=== PATIENT | male | born 1995 | race Hispanic/Latino ===

== ENCOUNTER 2018-07-01 08:59 | Emergency (ER) | payer SELFPAY ==
[2018-07-01] MEDS ORDERED: TETANUS & DIPHTHERIA TOX,ADULT 0.5 ML VIAL ONE (09:26)
[2018-07-01] MEDS ORDERED: BUPIVACAINE 0.5% PF 10 ML VIAL ONE (09:49)
[2018-07-01] MEDS ORDERED: LIDOCAINE 1% MPF 5 ML VIAL ONE (09:49)
--- NOTE | 2018-07-01 10:00 | RAD REPORT ---
EXAM DESCRIPTION: RAD - Hand Right 3 View - 07/01/2018 9:36 am CLINICAL HISTORY: Hand pain, laceration, location not specified COMPARISON: None. FINDINGS: No fracture is identified. There is no dislocation or periosteal reaction noted. No forei gn body or other soft tissue abnormality. IMPRESSION: Negative right hand examination.
--- NOTE | 2018-07-01 10:50 | ER ---
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 Transition of care: patient was not received from another setting of care. Onset of symptoms was July 01, 2018. Risk Assessment: Do you want to hurt yourself or someone else? Patient reports no desire to harm self or others. Initial Sepsis Screen: Does the patient meet any 2 criteria? No. Patient's initial sepsis screen is negative. Does the patient have a suspected source of infection? No. Patient's initial sepsis screen is negative. Care prior to arrival: Bleeding of injury controlled. Injury dressed. 09:11 Method Of Arrival: Ambulatory iw 09:11 Acuity: PAMELA 4 iw Triage Assessment: 09:25 General: Appears in no apparent distress. uncomfortable, Behavior is calm, cooperative, hj appropriate for age. Pain: Complains of pain in left hand. Historical: - Allergies: 09:12 No Known Allergies; iw - Home Meds: 09:12 None [Active]; iw - PMHx: 09:12 None; iw - PSHx: 09:12 None; iw - Immunization history:: Adult Immunizations not up to date. - Social history:: Smoking status: Patient/guardian denies using tobacco. - Ebola Screening: : Patient negative for fever greater than or equal to 101.5 degrees Fahrenheit, and additional compatible Ebola Virus Disease symptoms Patient denies exposure to infectious person Patient denies travel to an Ebola-affected area in the 21 days before illness onset No symptoms or risks identified at this time. Screenin:24 Abuse screen: Denies threats or abuse. Denies injuries from another. Nutritional hj screening: No deficits noted. Tuberculosis screening: No symptoms or risk factors identified. Fall Risk None identified. Assessment: 09:26 General: Appears in no apparent distress. uncomfortable, Behavior is calm, cooperative, hj appropriate for age. Pain: Complains of pain in left hand. Neuro: Level of Consciousness is awake, alert, obeys commands, Oriented to person, place, time, situation, Appropriate for age. Cardiovascular: Capillary refill < 3 seconds Patient's skin is warm and dry. Respiratory: Airway is patent Respiratory effort is even, unlabored, Respiratory pattern is regular, symmetrical. GI: No signs and/or symptoms were reported involving the gastrointestinal system. : No signs and/or symptoms were reported regarding the genitourinary system. EENT: No signs and/or symptoms were reported regarding the EENT system. Derm: Wound noted left hand. Musculoskeletal: No signs and/or symptoms reported regarding the musculoskeletal system. 10:30 Reassessment: Patient appears in no apparent distress at this time. No changes from aj1 previously documented assessment. Patient and/or family updated on plan of care and expected duration. Pain level reassessed. Patient is alert, oriented x 3, equal unlabored respirations, skin warm/dry/pink. 11:39 Reassessment: Patient appears in no apparent distress at this time. No changes from aj1 previously documented assessment. Patient and/or family updated on plan of care and expected duration. Pain level reassessed. Patient is alert, oriented x 3, equal unlabored respirations, skin warm/dry/pink. Vital Signs: 09:12 BP 139 / 80; Pulse 85; Resp 16 S; Temp 98.3; Pulse Ox 98% on R/A; Weight 108.86 kg; iw Height 5 ft. 7 in. (170.18 cm); Pain 0/10; 09:12 Body Mass Index 37.59 (108.86 kg, 170.18 cm) iw ED Course: 09:02 Patient arrived in ED. mr 09:03 None, None is Private Physician. mr 09:07 Sivakumar Lincoln PA is PHCP. cp 09:07 Ryan Le MD is Attending Physician. cp 09:09 Tariq Mijares, HIRAM is Primary Nurse. hj 09:12 Triage completed. iw 09:12 Arm band placed on. iw 09:26 Patient has correct armband on for positive identification. Bed in low position. Call hj light in reach. Side rails up X 1. 09:33 X-ray completed. Portable x-ray completed in exam room. Patient tolerated procedure sw well. 09:36 XRAY Hand RIGHT 3 View In Process Unspecified. EDMS 10:03 Report given to HIRAM Sandoval. 10:30 Assist provider with laceration repair on left hand using sutures. Set up tray. aj1 Performed by Sivakumar WAGGONER Patient tolerated well. 11:43 Patient did not have IV access during this emergency room visit. aj1 Administered Medications: 09:19 Drug: Tetanus-Diphtheria Toxoid Adult 0.5 ml {Activities Director Scouting: [employer]. Exp: 06/12/2020. Lot #: [id number]. } Route: IM; Site: left deltoid; 09:36 Follow up: Response: No adverse reaction 11:42 Follow up: Response: No adverse reaction aj 10:30 Drug: Lidocaine (1 %) 5 ml {Note: by PA. Ignacio} Volume: 5 ml; Route: Infiltration; aj1 11:42 Follow up: Response: No adverse reaction aj1 10:30 Drug: Bupivacaine (0.5 %) 5 ml {Note: given by PA. Ignacio} Volume: 10 ml; Route: aj1 Infiltration; 11:42 Follow up: Response: No adverse reaction aj1 Outcome: 10:50 Discharge ordered by . eliu 11:43 Discharged to home ambulatory. aj1 11:43 Condition: good 11:43 Discharge instructions given to patient, Instructed on discharge instructions, follow up and referral plans. Demonstrated understanding of instructions, follow-up care. 11:43 Patient left the ED. aj1 Signatures: Dispatcher [employer] EDMS Nhi Pablo RN RN aj1 Rivera, Mary mr Williams, Irene, RN RN iw Warren, Shannon sw Joaquin, Henry, RN RN hj Page, Corey, PA PA cp
--- NOTE | 2018-07-01 10:51 | EDPHYS ---
Physician Documentation [facility] Name: Malachi Carrillo Age: 22 yrs Sex: Male : 1995 Arrival Date: 07/01/2018 Time: 09:02 Bed 4 Private MD: None, None ED Physician Ryan Le HPI: 07/01 09:15 This 22 yrs old Male presents to ER via Ambulatory with complaints of Finger cp lacerations. Historical: - Allergies: 09:12 No Known Allergies; iw - Home Meds: 09:12 None [Active]; iw - PMHx: 09:12 None; iw - PSHx: 09:12 None; iw - Immunization history:: Adult Immunizations not up to date. - Social history:: Smoking status: Patient/guardian denies using tobacco. - Ebola Screening: : Patient negative for fever greater than or equal to 101.5 degrees Fahrenheit, and additional compatible Ebola Virus Disease symptoms Patient denies exposure to infectious person Patient denies travel to an Ebola-affected area in the 21 days before illness onset No symptoms or risks identified at this time. ROS: 09:20 Constitutional: Negative for fever. cp 09:20 Eyes: Negative for injury, pain, redness, and discharge. cp 09:20 ENT: Negative for ear pain, sore throat. 09:20 Cardiovascular: Negative for chest pain, palpitations. 09:20 Respiratory: Negative for cough, wheezing. 09:20 Skin: Positive for laceration(s), of the right hand. 09:20 All other systems are negative. Exam: 09:25 Constitutional: The patient appears in no acute distress, alert, awake, well developed, cp well nourished. 09:25 Head/Face: Normocephalic, atraumatic. cp 09:25 Eyes: Periorbital structures: appear normal, Conjunctiva: normal, no exudate, no injection, Lids and lashes: appear normal, bilaterally. 09:25 ENT: External ear(s): are unremarkable, Nose: is normal, Mouth: is normal. 09:25 Chest/axilla: Inspection: normal. 09:25 Cardiovascular: Rate: normal. 09:25 Respiratory: the patient does not display signs of respiratory distress, Respirations: normal, no use of accessory muscles, no retractions, no splinting, no tachypnea. 09:25 Abdomen/GI: Exam negative for discomfort, distension, guarding, Inspection: abdomen appears normal. 09:25 Skin: injury, laceration(s), the wound is approximately 3 cm(s), of the distal phalanx [place] side, the second wound is approximately 2.5 cm(s), of the radial side middle phalanx right middle finger, that can be described as clean, no foreign body, linear, without bleeding. 09:25 Neuro: Motor: is normal, Sensation: 2 point discrimination is normal. Vital Signs: 09:12 BP 139 / 80; Pulse 85; Resp 16 S; Temp 98.3; Pulse Ox 98% on R/A; Weight 108.86 kg; iw Height 5 ft. 7 in. (170.18 cm); Pain 0/10; 09:12 Body Mass Index 37.59 (108.86 kg, 170.18 cm) iw Laceration: 10:43 Wound Repair of 3cm ( 1.2in ) subcutaneous laceration to right index finger. Linear cp shaped.. Distal neuro/vascular/tendon intact. Anesthesia: Digital block administered with 4 mls of Lido/Marcaine. Wound prep: Moderate cleansing by operating room surgical technician. Skin closed with 4 5-0 Prolene using interrupted sutures and sterile technique. Dressed with Bacitracin, Kerlix. Patient tolerated well. 10:43 Wound Repair of 2.5cm ( 1.0in ) subcutaneous laceration to right middle finger. Linear cp shaped.. Distal neuro/vascular/tendon intact. Anesthesia: Wound infiltrated with 4 mls of Lido/Marcaine. Wound prep: Moderate cleansing by nurse. Skin closed with 4 5-0 Prolene using interrupted sutures and sterile technique. Dressed with Bacitracin, Kerlix. Patient tolerated well. MDM: 09:07 Patient medically screened. cp 10:00 Differential diagnosis: tendon injury, simple laceration, open fracture. cp 10:50 Data reviewed: vital signs, nurses notes, radiologic studies, plain films, and as a cp result, I will discharge patient. 10:50 Test interpretation: by ED physician or midlevel provider: plain radiologic studies. cp 10:50 Counseling: I had a detailed discussion with the patient and/or guardian regarding: the cp historical points, exam findings, and any diagnostic results supporting the discharge/admit diagnosis, to return to the emergency department if symptoms worsen or persist or if there are any questions or concerns that arise at home. 10:50 Response to treatment: the patient's symptoms have markedly improved after treatment, cp and as a result, I will discharge patient. 07/01 09:13 Order name: XRAY Hand RIGHT 3 View; Complete Time: 10:06 cp 07/01 10:06 Interpretation: Report reviewed. cp 07/01 09:35 Order name: Dressing - Wound; Complete Time: 09:35 cp 07/01 09:35 Order name: Gloves, Sterile; Complete Time: 09:36 cp 07/01 09:35 Order name: Setup Suture Tray; Complete Time: 09:36 cp 07/01 10:40 Order name: Wound dressing; Complete Time: 10:41 cp Administered Medications: 09:19 Drug: Tetanus-Diphtheria Toxoid Adult 0.5 ml {Front End Driver: [employer]. Exp: 06/12/2020. Lot #: [id number]. } Route: IM; Site: left deltoid; 09:36 Follow up: Response: No adverse reaction 11:42 Follow up: Response: No adverse reaction [facility] 10:30 Drug: Lidocaine (1 %) 5 ml {Note: by PA. Ignacio} Volume: 5 ml; Route: Infiltration; [facility] 11:42 Follow up: Response: No adverse reaction [facility] 10:30 Drug: Bupivacaine (0.5 %) 5 ml {Note: given by PA. Ignacio} Volume: 10 ml; Route: aj1 Infiltration; 11:42 Follow up: Response: No adverse reaction [facility] Disposition: 07/01/18 10:50 Discharged to Home. Impression: Laceration without foreign body of right middle finger without damage to nail, Laceration without foreign body of right index finger without damage to nail. - Condition is Stable. - Discharge Instructions: Laceration Care, Adult. - Work release form, Medication Reconciliation Form, Thank You Letter, Antibiotic Education, Prescription Opioid Use form. - Follow up: Private Physician; When: 7 - 10 days; Reason: Staple/Suture removal. - Problem is new. - Symptoms have improved. Addendum: 07/02/2018 12:38 Co-signature as Attending Physician, Ryan Le MD I agree with the assessment and w a plan of care. Signatures: Dispatcher [employer] EDNhi Cabrera RN RN aj1 Gavi Edgar RN RN iw Joaquin, Henry, RN RN hj Page, Corey, PA PA cp Appiah, William, MD MD wa Corrections: (The following items were deleted from the chart) 07/01 11:43 10:50 07/01/2018 10:50 Discharged to Home. Impression: Laceration without foreign body aj1 of right middle finger without damage to nail; Laceration without foreign body of right index finger without damage to nail. Condition is Stable. Forms are Medication Reconciliation Form, Thank You Letter, Antibiotic Education, Prescription Opioid Use. Follow up: Private Physician; When: 7 - 10 days; Reason: Staple/Suture removal. Problem is new. Symptoms have improved. cp
== END 2018-07-01 11:43 | disposition home or self-care (01) ==
LOC: ER 08:59
PROC: 0JQJ0ZZ Repair Right Hand Subcutaneous Tissue and Fascia, Open Approach (ICD-10-PCS; principal; 2018-07-01)
DX: S61.210A Laceration without foreign body of right index finger without damage to nail, initial encounter (principal); W45.8XXA Other foreign body or object entering through skin, initial encounter; Y93.9 Activity, unspecified; Y92.9 Unspecified place or not applicable; Z23 Encounter for immunization
CPT/HCPCS: 90714; 99283

== ENCOUNTER 2018-07-08 17:59 | Emergency (ER) | payer SELFPAY ==
--- NOTE | 2018-07-08 18:17 | ER ---
Nurse's Notes [facility] Name: Malachi Carrillo Age: 22 yrs Sex: Male : 1995 Arrival Date: 07/08/2018 Time: 18:02 Bed 10 Private MD: None, None Diagnosis: Encounter for removal of sutures Presentation: 07/08 18:04 Presenting complaint: Patient states: i think they opened back up, i went back to work tw2 the next day. Transition of care: patient was not received from another setting of care. Onset of symptoms was July 08, 2018. Risk Assessment: Do you want to hurt yourself or someone else? Patient reports no desire to harm self or others. Initial Sepsis Screen: Does the patient meet any 2 criteria? No. Patient's initial sepsis screen is negative. Does the patient have a suspected source of infection? No. Patient's initial sepsis screen is negative. Care prior to arrival: None. 18:04 Method Of Arrival: Ambulatory tw2 18:04 Acuity: PAMELA 4 tw2 Triage Assessment: 18:06 General: Appears in no apparent distress. Behavior is calm, cooperative, appropriate tw2 for age. Pain: Denies pain. Historical: - Allergies: 18:05 No Known Allergies; tw2 - Home Meds: 18:05 None [Active]; tw2 - PSHx: 18:05 None; tw2 - Immunization history:: Adult Immunizations up to date. - Social history:: Smoking status: . - Ebola Screening: : Patient denies travel to an Ebola-affected area in the 21 days before illness onset. Screenin:12 Abuse screen: Denies threats or abuse. Nutritional screening: No deficits noted. tw2 Tuberculosis screening: No symptoms or risk factors identified. Fall Risk None identified. Assessment: 18:10 General: Appears in no apparent distress. Behavior is calm, cooperative, appropriate tw2 for age. Pain: Denies pain. Neuro: Level of Consciousness is awake, alert, obeys commands, Oriented to person, place, time, situation. Cardiovascular: Capillary refill < 3 seconds Patient's skin is warm and dry. Respiratory: Airway is patent Respiratory effort is even, unlabored, Respiratory pattern is regular, symmetrical. GI: No signs and/or symptoms were reported involving the gastrointestinal system. : No signs and/or symptoms were reported regarding the genitourinary system. EENT: No signs and/or symptoms were reported regarding the EENT system. Derm: Wound noted dorsal aspect of distal phalanx of right index finger and dorsal aspect of middle phalanx of right middle finger. Derm: sutures clean and intact, maceration noted around suture where pt had tape around his fingers. Musculoskeletal: Range of motion: intact in all extremities. Vital Signs: 18:06 BP 134 / 83; Pulse 88; Resp 18; Temp 97.8; Pulse Ox 96% on R/A; Pain 0/10; tw2 ED Course: 18:02 Patient arrived in ED. sb2 18:02 None, None is Private Physician. sb2 18:05 Triage completed. tw2 18:07 Arm band placed on. tw2 18:09 Prosper Nguyễn NP is PHCP. pm1 18:09 Gage Cooper MD is Attending Physician. pm1 18:10 Sola Tim RN is Primary Nurse. tw2 18:12 Bed in low position. Call light in reach. tw2 18:20 No provider procedures requiring assistance completed. Patient did not have IV access tw2 during this emergency room visit. Administered Medications: No medications were administered Outcome: 18:16 Discharge ordered by MD. pm1 18:21 Discharged to home ambulatory. tw2 18:21 Condition: stable 18:21 Discharge instructions given to patient, Instructed on discharge instructions, follow up and referral plans. Demonstrated understanding of instructions, follow-up care. 18:21 Patient left the ED. tw2 Signatures: Prosper Nguyễn NP BILINGUAL TEACHER pm1 Sola Tim, RN RN tw2 Jennifer Spicer sb2
--- NOTE | 2018-07-08 18:17 | EDPHYS ---
Physician Documentation [facility] Name: Malachi Carrillo Age: 22 yrs Sex: Male : 1995 Arrival Date: 07/08/2018 Time: 18:02 Bed 10 Private MD: None, None ED Physician Gage Cooper HPI: 07/08 18:10 This 22 yrs old Male presents to ER via Ambulatory with complaints of Suture pm1 Removal. 18:10 The patient has sutures on the dorsal aspect of middle phalanx of right middle finger pm1 and dorsal aspect of distal phalanx of right index finger. Previous treatment: The patient was initially treated 7 day(s) ago, the care was rendered at [facility], Treatment type: The patient's original treatment included sutures. Sutures/marni progress: The patient has no c/o's. The wound is well-healing with no redness, swelling, discharge, or dehiscence reported. The patient has not experienced similar symptoms in the past. The patient has been recently seen at the [facility] Emergency Department, last week. Historical: - Allergies: 18:05 No Known Allergies; tw2 - Home Meds: 18:05 None [Active]; tw2 - PSHx: 18:05 None; tw2 - Immunization history:: Adult Immunizations up to date. - Social history:: Smoking status: . - Ebola Screening: : Patient denies travel to an Ebola-affected area in the 21 days before illness onset. ROS: 18:10 Constitutional: Negative for fever, chills, and weight loss, Eyes: Negative for injury, pm1 pain, redness, and discharge, ENT: Negative for injury, pain, and discharge, Neck: Negative for injury, pain, and swelling, Cardiovascular: Negative for chest pain, palpitations, and edema, Respiratory: Negative for shortness of breath, cough, wheezing, and pleuritic chest pain, Abdomen/GI: Negative for abdominal pain, nausea, vomiting, diarrhea, and constipation, Back: Negative for injury and pain, MS/Extremity: Negative for injury and deformity, Skin: Negative for injury, rash, and discoloration, Neuro: Negative for headache, weakness, numbness, tingling, and seizure. Exam: 18:10 Constitutional: This is a well developed, well nourished patient who is awake, alert, pm1 and in no acute distress. Head/Face: Normocephalic, atraumatic. Neck: Trachea midline, no thyromegaly or masses palpated, and no cervical lymphadenopathy. Supple, full range of motion without nuchal rigidity, or vertebral point tenderness. No Meningismus. Chest/axilla: Normal chest wall appearance and motion. Nontender with no deformity. No lesions are appreciated. Cardiovascular: Regular rate and rhythm with a normal S1 and S2. No gallops, murmurs, or rubs. Normal PMI, no JVD. No pulse deficits. Respiratory: Lungs have equal breath sounds bilaterally, clear to auscultation and percussion. No rales, rhonchi or wheezes noted. No increased work of breathing, no retractions or nasal flaring. Back: No spinal tenderness. No costovertebral tenderness. Full range of motion. 18:10 MS/ Extremity: Pulses equal, no cyanosis. Neurovascular intact. Full, normal range of motion. 18:10 Skin: Wound recheck: Suture laceration closure: the wound is healing well, the edges are well approximated, no evidence of dehiscence, no drainage, no erythema, no swelling. 18:10 Neuro: Orientation: is normal, Motor: is normal, no acute changes, moves all fours, Sensation: is normal, no obvious gross deficits. Vital Signs: 18:06 BP 134 / 83; Pulse 88; Resp 18; Temp 97.8; Pulse Ox 96% on R/A; Pain 0/10; tw2 MDM: 18:09 Patient medically screened. pm1 18:15 Data reviewed: vital signs. Data interpreted: Pulse oximetry: on room air is 96 %. pm1 Interpretation: normal. Counseling: I had a detailed discussion with the patient and/or guardian regarding: the historical points, exam findings, and any diagnostic results supporting the discharge/admit diagnosis, the need for outpatient follow up, to return to the emergency department if symptoms worsen or persist or if there are any questions or concerns that arise at home. Administered Medications: No medications were administered Disposition: 07/09 06:46 Co-signature as Attending Physician, Gage Cooper MD I agree with the assessment and kdr plan of care. Disposition: 07/08/18 18:16 Discharged to Home. Impression: Encounter for removal of sutures. - Condition is Stable. - Discharge Instructions: Suture Removal, Care After. - Medication Reconciliation Form, Thank You Letter form. - Follow up: Emergency Department; When: As needed; Reason: Worsening of condition. Follow up: Private Physician; When: As needed; Reason: Wound Recheck, Recheck today's complaints, Continuance of care, Re-evaluation by your physician. - Problem is new. - Symptoms have improved. Signatures: Gage Cooper MD MD [facility] Prosper Nguyễn NP SUPERVISOR INSTRUMENT MAINTENANCE pm1 Sola Tim RN RN tw2 Corrections: (The following items were deleted from the chart) 07/08 18:21 18:16 07/08/2018 18:16 Discharged to Home. Impression: Encounter for removal of tw2 sutures. Condition is Stable. Forms are Medication Reconciliation Form, Thank You Letter, Antibiotic Education, Prescription Opioid Use. Follow up: Emergency Department; When: As needed; Reason: Worsening of condition. Follow up: Private Physician; When: As needed; Reason: Wound Recheck, Recheck today's complaints, Continuance of care, Re-evaluation by your physician. Problem is new. Symptoms have improved. pm1
== END 2018-07-08 18:21 | disposition home or self-care (01) ==
LOC: ER 17:59
DX: Z48.02 Encounter for removal of sutures (principal)
CPT/HCPCS: 99281